=== PATIENT | female | born 1995 | race Two or more races ===

== ENCOUNTER 2023-01-24 19:56 | Emergency (ER) | payer OTHER ==
[~2023-01-24] VITALS: Ht 170.2 cm; Wt 99.8 kg
[2023-01-24] MEDS ORDERED: PRENA1 TRUE CO1 EACH PO (20:17)
[2023-01-24 21:48] LABS: URINE APPEARANCE Clear; URINE BILIRRUBIN Negative (NEGATIVE); URINE BLOOD Negative; URINE COLOR Yellow; URINE GLUCOSE Negative (NEGATIVE); URINE LEUKOCYTE Negative; URINE NITRATE Negative; URINE PROTEIN Negative (NEGATIVE)
[2023-01-24 21:48] LABS: HEMOGLOBIN 11.1 g/dL (12.0-15.00); MEAN CELL VOLUME 77.3 fL (80.00-100.00); MEAN CORPUSCULAR HEMOGLOBIN 26.1 pg (27.00-32.0); MEAN CORPUSCULAR HGB CONC 33.7 g/dl (32.0-36.0); PLATELET COUNT 235 K/uL (150-450); RED BLOOD COUNT 4.27 M/uL (4.00-6.00)
[2023-01-24 21:49] LABS: URINE BACTERIA 318.6 uL (0.0-1933); URINE EPITHELIAL CELLS 8.8 uL (0.0-38.8); URINE RBC 5.1 uL (0.0-20.8); URINE WBC 11.9 uL (0.0-23.2)
[2023-01-24 22:20] LABS: CALCIUM 9.1 mg/dL (8.5-10.1); CREATININE SERUM 0.54 mg/dL (0.55-1.02); GFR 137.55; POTASSIUM 3.71 mEq/L (3.5-5.1)
[2023-01-24] MEDS ORDERED: PEPCID AC20 MG PO (22:42)
[2023-01-24] MEDS ORDERED: ONDANSETRON HCL4 MG PO (22:42)
== END 2023-01-24 22:55 | disposition home or self-care (01) ==
LOC: ER 20:39
PROVIDERS: Nurse Practitioner Family
DX: K52.89 Other specified noninfective gastroenteritis and colitis (principal)